=== PATIENT | female | born 1965 | race American Indian/Alaskan Native ===

== ENCOUNTER 2016-12-29 08:27 | Outpatient (CLI) | payer OTHER ==
--- NOTE | 2016-12-29 10:09 | Mammography Report ---
BILATERAL DIGITAL SCREENING MAMMOGRAM with CAD: 12/29/16 08:27:00 CLINICAL: Routine screening. COMPARISON:12/27/15 FINDINGS: The breasts are almost entirely fatty.Stable right upper outer benign intraparenchymal lymph node. No mass, architectural distortion or suspicious calcifications. IMPRESSION: No mammographic evidence of malignancy. BI-RADS CATEGORY: 2 -- Benign RECOMMENDATION: Routine mammographic screening in one year. COMMENT: Patient follow-up letters are generated by our [employer] application.
== END 2016-12-29 08:28 | disposition home or self-care (01) ==
LOC: SPVWC 08:27
PROVIDERS: ATTEND Family Medicine
DX: Z12.31 Encounter for screening mammogram for malignant neoplasm of breast (principal)
CPT/HCPCS: 77067; G0202

== ENCOUNTER 2018-07-26 09:41 | Emergency (ER) | payer SELFPAY ==
--- NOTE | 2018-07-26 11:06 | XRay Report ---
LEFT ANKLE RADIOGRAPHS INDICATION: Pain. COMPARISON: None similar. FINDINGS: AP, lateral and oblique left ankle radiographs demonstrate intact mortise, lateral malleolus and talar dome contour. Small, slightly linear ossific densities measuring up to 0.5 cm noted inferior to the medial malleolus, presumed degenerative/old posttraumatic. Mild ankle soft tissue swelling may though be suspected laterally and anteriorly. Subtle joint effusion also not entirely excluded. Small to moderate dorsal calcaneal spur. Few small round soft tissue calcifications noted anterior to lower tibia. CONCLUSION: Few bony degenerative changes and possible left ankle soft tissue swelling without acute bony abnormality, as described. Please correlate. Thank you for the opportunity to participate in this patient's care.
[2018-07-26] MEDS ORDERED: IBUPROFEN PO ONE (11:40)
[2018-07-26] MEDS ORDERED: DELTASONE PO ONE (11:40)
--- NOTE | 2018-07-26 11:43 | Emergency Department Report ---
HPI - General Chief Complaint: Extremity Injury, Lower Time Seen by Provider: 07/26/18 11:24 - HPI HPI: Patient is a pleasant 52-year-old who comes to the ER complaining of left foot and toe pain since Sunday. She denies any trauma. She states that even light touch is hurting her foot. She has had problems going work because she is on her feet often at work and it hurts so much that she has to sit and elevate her foot to decrease the pain. She has taken Motrin with no real improvement at home. Primary care is Dr. Grajeda at [facility]. Home medications include a blood pressure medicine and vitamins. Patient has a past medical history of hypertension Patient has had a partial hysterectomy in the past. ED Past Medical Hx - Past Medical History Hx Hypertension: Yes - Surgical History Past Surgical History?: Yes Additional Surgical History: hysterectomy - Family History Family history: no significant - Social History Smoking Status: Never Smoker Substance Use Type: Alcohol - Medications Home Medications: Home Medications Medication Instructions Recorded Confirmed Last Taken Type Colchicine 0.6 mg PO DAILY #11 each 07/26/18 Unknown Rx Ibuprofen [Motrin] 800 mg PO Q8HR PRN #20 tablet 07/26/18 Unknown Rx methylPREDNISolone [Medrol 4MG 4 mg PO DAILY #1 tab.ds.pk 07/26/18 Unknown Rx DOSEPAK (21 tabs)] ED Review of Systems ROS: Stated complaint: (L) ANKLE SWOLLEN Other details as noted in HPI Comment: All other systems reviewed and negative Physical Exam - Physical Exam Vital Signs: Vital Signs 07/26/18 09:53 Temperature 98.3 F Pulse Rate 74 Respiratory 18 Rate Blood Pressure 147/80 O2 Sat by Pulse 100 Oximetry Physical Exam: WDWN patient in NAD VS per RN flow sheet Alert and oriented to person, place and time. S1-S2. No S3 or S4. No systolic or diastolic murmur. No JVD. No pitting edema. Lungs clear to auscultation bilaterally anteriorly and posteriorly. Abdomen soft nontender bowel soundsx4 Moves all extremities well. r great toe red, swollen and painful to touch DP plus 2 bilaterally; rapid cap refill sensation intact Mood and affect appropriate. ED Course Vital Signs 07/26/18 09:53 Temperature 98.3 F Pulse Rate 74 Respiratory 18 Rate Blood Pressure 147/80 O2 Sat by Pulse 100 Oximetry ED Medical Decision Making - Radiology Data Radiology results: report reviewed, image reviewed - Medical Decision Making see exam pt has no history of gout clinical exam consistent with gouty arthritis light touch of the prox great toes is painful does have family hx gout xray neg for acute fracture degenerative changes noted discussed arthritis and gouty arthritis with pt. educated her on dietary considerations. will medicate pt accordingly and she will follow up with Dr Castano next week. pt is neurovasc intact and ambulatory on dc. Vital Signs 07/26/18 09:53 Temperature 98.3 F Pulse Rate 74 Respiratory 18 Rate Blood Pressure 147/80 O2 Sat by Pulse 100 Oximetry - Differential Diagnosis ro fracture v arthritis Critical care attestation.: If time is entered above; I have spent that time in minutes in the direct care of this critically ill patient, excluding procedure time. ED Disposition Clinical Impression: Foot pain, left, Arthritis Disposition: DC- TO HOME OR SELFCARE Is pt being admited?: No Does the pt Need Aspirin: No Condition: Stable Instructions: Acute Gouty Arthritis (ED), Arthralgia (ED) Additional Instructions: DIET TOLERATED MEDS ORDERED TODAY IN ER FOLLOW INSTRUCTIONS ON THE BOTTLE FOLLOW UP PCP WITHIN 48 HOURS TO ENSURE YOU ARE GETTING BETTER ACTIVITY TOLERATED MOTRIN OR TYLENOL FOR PAIN OR FEVER RETURN TO THE ER FOR WORSENING SYMPTOMS NOT RELIEVED BY YOUR MEDICATIONS. Prescriptions: Colchicine 0.6 mg PO DAILY #11 each methylPREDNISolone [Medrol 4MG DOSEPAK (21 tabs)] 4 mg PO DAILY #1 tab.ds.pk Ibuprofen [Motrin] 800 mg PO Q8HR PRN #20 tablet PRN Reason: Pain , Severe (7-10) Referrals: [facility] [Outside] - 3-5 Days Time of Disposition: 11:39
[2018-07-26 12:44] VITALS: BP 142/80
== END 2018-07-26 12:37 | disposition home or self-care (01) ==
LOC: ED 09:41
DX: M19.072 Primary osteoarthritis, left ankle and foot (principal); I10 Essential (primary) hypertension; Z90.710 Acquired absence of both cervix and uterus
CPT/HCPCS: 73610; 99283; J7512

== ENCOUNTER 2019-01-17 07:53 | Outpatient (CLI) | payer BC ==
--- NOTE | 2019-01-20 11:46 | Mammography Report ---
DIGITAL SCREENING MAMMOGRAM WITH CAD, 01/17/2019 INDICATION: Routine screening mammography. TECHNIQUE: Digital bilateral 2D mammography was obtained in the craniocaudal and mediolateral obliq ue projections. This examination was interpreted with the benefit of Computer-Aided Detection analysi s. COMPARISON: 01/11/2018 FINDINGS: Breast Density: The breasts are almost entirely fatty. There is no evidence of dominant mass, suspicious calcifications or architectural distortion in eithe r breast. Stable right outer benign intramammary lymph node. IMPRESSION: No mammographic evidence of malignancy. Follow up recommendation: Routine yearly BI-RADS Category 2: Benign. A "normal" or negative report should not discourage follow up or biopsy of a clinically significant f inding. A written summary of these findings will be mailed to the patient. The patient will be entered into a mammography reporting system which will generate a reminder letter for the patient's next appointmen t at the appropriate interval. The [employer] recommends yearly mammograms starting at age 40 and continuing as l rosy as a woman is in good health. Breast MRI is recommended for women with an approximate 20-25% or greater lifetime risk of breast cancer, including women with a strong family history of breast or ova osmel cancer or who have been treated for Hodgkin's disease. Signer Name: Serge Garcia MD Signed: 01/20/2019 11:41 AM Workstation Name: [id number]
== END 2019-01-17 07:54 | disposition home or self-care (01) ==
LOC: SPVWC 07:53
PROVIDERS: ATTEND Family Medicine
DX: Z12.31 Encounter for screening mammogram for malignant neoplasm of breast (principal)
CPT/HCPCS: 77067

== ENCOUNTER 2020-01-23 07:55 | Outpatient (CLI) | payer BC ==
--- NOTE | 2020-01-23 10:52 | Mammography Report ---
DIGITAL SCREENING MAMMOGRAM WITH CAD, 01/23/2020 CLINICAL INFORMATION / INDICATION: Routine screening mammography. TECHNIQUE: Digital bilateral 2D mammography was obtained in the craniocaudal and mediolateral obliqu e projections. This examination was interpreted with the benefit of Computer-Aided Detection analysis . COMPARISON: 12/27/2015, 01/17/2019 FINDINGS: Breast Density: The breasts are almost entirely fatty. No dominant mass, suspicious calcifications, or architectural distortion in either breast. Stable benign nodule is again noted in the right breast at 10:00. Overall, no interval change. IMPRESSION: No mammographic evidence of malignancy. Follow up recommendation: Routine yearly BI-RADS Category 2: Benign. A "normal" or negative report should not discourage follow up or biopsy of a clinically significant f inding. A written summary of these findings will be mailed to the patient. The patient will be entered into a mammography reporting system which will generate a reminder letter for the patient's next appointmen t at the appropriate interval. The [employer] recommends yearly mammograms starting at age 40 and continuing as l rosy as a woman is in good health. Breast MRI is recommended for women with an approximate 20-25% or greater lifetime risk of breast cancer, including women with a strong family history of breast or ova osmel cancer or who have been treated for Hodgkin's disease. Signer Name: Kim Arceo MD Signed: 01/23/2020 10:47 AM Workstation Name: [id number]
== END 2020-01-23 07:56 | disposition home or self-care (01) ==
LOC: SPVWC 07:55
PROVIDERS: ATTEND Family Medicine
DX: Z12.31 Encounter for screening mammogram for malignant neoplasm of breast (principal)
CPT/HCPCS: 77067

== ENCOUNTER 2021-01-28 15:24 | Outpatient (CLI) | payer BC | END 2021-01-28 15:25 | disposition home or self-care (01) | LOC: SPVWC 15:24 | PROVIDERS: ATTEND Family Medicine | DX: Z12.31 Encounter for screening mammogram for malignant neoplasm of breast (principal) | CPT/HCPCS: 77067 ==